=== PATIENT | female | born 1940 | race Caucasian/White ===

== ENCOUNTER 2020-06-30 09:09 | Inpatient (IN) | payer MEDICAID, OTHER ==
[~2020-06-30] VITALS: Ht 165.1 cm; Wt 50.8 kg
[2020-06-30 09:58] LABS: BASOPHILS % 0.6 % (0.0-2.0); EOSINOPHILS % 2.4 % (0.0-5.0); HEMATOCRIT. 45.3 % (36.0-48.0); HEMOGLOBIN. 15.4 g/dL (12.0-16.0); LYMPHOCYTES % 39.9 % (20.0-50.0); MEAN CORPUSCULAR HEMOGLOBIN 31.8 pg (28.0-32.0); MEAN CORPUSCULAR VOLUME 93.4 fL (81.0-99.0); MEAN PLATELET VOLUME 9.9 fl (7.4-10.4); MONOCYTES % 4.9 % (2.0-8.0); NEUTROPHILS % 52.2 % (40.0-76.0); PLATELET 194 x1000/uL (130-400); RED BLOOD CELL COUNT 4.85 mill/uL (4.2-5.4)
[2020-06-30 10:01] LABS: CHLORIDE 105 mEq/L (98-107)
[2020-06-30 10:06] LABS: ETHANOL BLOOD < 10 mg/dL
[2020-06-30 10:09] LABS: VALPROIC ACID <3.0 ug/mL ug/mL (50-100)
[2020-06-30 10:11] LABS: CARBAMAZEPINE < 0.5 ug/mL (4-12); PHENOBARBITAL < 2.1 ug/mL (15.0-40.0)
[2020-06-30 10:31] LABS: CLARITY URINE CLEAR (CLEAR); COLOR URINE YELLOW (YELLOW); KETONES URINE NEGATIVE (NEGATIVE); LEUKOCYTE ESTERASE URINE 1+ (NEGATIVE); NITRITE URINE NEGATIVE (NEGATIVE); OCCULT BLOOD URINE 2+ (NEGATIVE); PH URINE 6.5 (4.5-8.0); PROTEIN URINE TRACE (NEGATIVE); SPECIFIC GRAVITY URINE 1.018 (1.005-1.030); UROBILINOGEN URINE 0.2 E.U./dL (0.2-1.0)
[2020-06-30 10:39] LABS: *AMPHETAMINES SCREEN URINE NEGATIVE (NEGATIVE); *BARBITURATES SCREEN URINE NEGATIVE (NEGATIVE); *BENZODIAZEPINES SCREEN URINE NEGATIVE (NEGATIVE); *COCAINE SCREEN URINE NEGATIVE (NEGATIVE); METHADONE URINE SCREEN NEGATIVE (NEGATIVE); OPIATES URINE SCREEN NEGATIVE (NEGATIVE)
[2020-06-30 10:40] LABS: CANNABINOID URINE SCREEN NEGATIVE (NEGATIVE); PHENCYCLIDINE URINE SCREEN NEGATIVE (NEGATIVE)
[2020-06-30] MEDS ORDERED: POTASSIUM CHLORIDE 20MEQ TABLET SR PO ONE (11:00)
[2020-06-30] MEDS ORDERED: PHENYTOIN SODIUM EXTENDED 100MG CAPSULE PO ONE (11:15)
[2020-06-30] MEDS ORDERED: PHENYTOIN 100 MG/4 ML UDC PO SCH (12:00)
[2020-06-30] MEDS ORDERED: POTASSIUM CHLORIDE 20MEQ/PACKET PO SCH (12:00)
[2020-06-30 14:40] VITALS: BP 124/67
[2020-06-30 15:05] VITALS: BP 124/67
[2020-06-30 16:00] VITALS: BP 114/60
[2020-06-30] MEDS ORDERED: LEVETIRACETAM 500 MG in SODIUM CHLORIDE 0.9% 100 ML IV SCH (17:00)
[2020-06-30] MEDS: DEXT 5%/0.9% NACL 1,000 ML IV SCH (18:12)
[2020-06-30] MEDS: ENOXAPARIN 30MG/0.3ML SYR SUBCUT SCH (18:13)
[2020-06-30 19:54] LABS: CHLORIDE 106 mEq/L (98-107)
[2020-06-30 19:57] LABS: INR 1.2; PROTHROMBIN TIME 12.2 sec (9.6-11.0)
[2020-06-30 20:00] VITALS: BP 110/61
[2020-06-30] MEDS: LEVETIRACETAM 500MG PREMIX 100 ML IV SCH (20:38)
[2020-06-30] MEDS ORDERED: POTASSIUM CHLORIDE INJ 40 MEQ in DEXT 5% WATER 500 ML IV NR (22:00)
[2020-07-01] VITALS: BP 102/60
[2020-07-01 04:00] VITALS: BP 106/46
[2020-07-01] MEDS: DEXT 5%/0.9% NACL 1,000 ML IV SCH ×2 (04:42→16:53)
[2020-07-01 07:19] LABS: VITAMIN B12 SERUM 1739 pg/mL (211-911)
[2020-07-01 08:00] VITALS: BP 124/68
[2020-07-01] MEDS: LEVETIRACETAM 500MG PREMIX 100 ML IV SCH ×2 (09:05→21:08)
[2020-07-01 09:11] LABS: CHLORIDE 107 mEq/L (98-107)
[2020-07-01 09:19] LABS: BASOPHILS % 0.5 % (0.0-2.0); EOSINOPHILS % 2.2 % (0.0-5.0); HEMATOCRIT. 47.8 % (36.0-48.0); HEMOGLOBIN. 16.3 g/dL (12.0-16.0); LYMPHOCYTES % 34.9 % (20.0-50.0); MEAN CORPUSCULAR HEMOGLOBIN 31.9 pg (28.0-32.0); MEAN CORPUSCULAR VOLUME 93.6 fL (81.0-99.0); MONOCYTES % 9.2 % (2.0-8.0); NEUTROPHILS % 53.2 % (40.0-76.0); RED CELL DISTRIBUTION WIDTH 13.7 % (11.6-14.6)
[2020-07-01 11:35] LABS: PLATELET 107 x1000/uL (130-400)
[2020-07-01 11:36] LABS: PLATELET ESTIMATE NORMAL
[2020-07-01 12:00] VITALS: BP 145/60
[2020-07-01 16:00] VITALS: BP 112/70
[2020-07-01] MEDS: ENOXAPARIN 30MG/0.3ML SYR SUBCUT SCH (16:07)
[2020-07-01 20:00] VITALS: BP 114/49
[2020-07-02] VITALS: BP 142/70
[2020-07-02 04:00] VITALS: BP 126/59
[2020-07-02 08:00] VITALS: BP 122/61
[2020-07-02] MEDS: DEXT 5%/0.9% NACL 1,000 ML IV SCH (09:38)
[2020-07-02] MEDS: LEVETIRACETAM 500MG PREMIX 100 ML IV SCH (09:39)
[2020-07-02] MEDS ORDERED: KEPP500 MT (11:23)
[2020-07-02 11:44] VITALS: BP 121/59
[2020-07-02 12:00] VITALS: BP 121/59
== END 2020-07-02 14:10 | disposition home or self-care (01) | DRG 52 ==
LOC: ER 09:49 → 5WST 12:37 → EDBEDREQTM 12:39 → EDBEDREQ 12:39 → ENRESERV 13:45 → 5WST 14:58
PROVIDERS: ADMIT Family Medicine; ATTEND Family Medicine
DX: G93.41 Metabolic encephalopathy (principal); G40.909 Epilepsy, unspecified, not intractable, without status epilepticus; I10 Essential (primary) hypertension; R62.7 Adult failure to thrive; E78.5 Hyperlipidemia, unspecified; F03.90 Unspecified dementia, unspecified severity, without behavioral disturbance, psychotic disturbance, mood disturbance, and anxiety; Z74.01 Bed confinement status; Z86.73 Personal history of transient ischemic attack (TIA), and cerebral infarction without residual deficits; Z68.1 Body mass index [BMI] 19.9 or less, adult; E87.6 Hypokalemia; R13.10 Dysphagia, unspecified
CPT/HCPCS: 36415; 80048; 80053; 80061; 80156; 80165; 80184; 80185; 80305; 80320; 81003; 82607; 82962; 83036; 84134; 84443; 85025; 92610; 93005; 99285; J1650; J1953; J3480; J7042; J7060; G0480